=== PATIENT | male | born 1930 | race Caucasian/White ===

== ENCOUNTER 2017-05-27 07:33 | Day surgery (SDC) | payer MEDICARE, OTHER ==
[~2017-05-27] VITALS: Ht 177.8 cm; Wt 78.8 kg
[~2017-05-27 07:33] MED LIST: ASPI-650 PO; GLUCOSAMINE PO; MULT-516 PO
[2017-05-27] MEDS ORDERED: SODIUM CHLORIDE 0.9% 1,000 ML IV SCH (07:52)
[2017-05-27 08:16] VITALS: BP 161/68
[2017-05-27] MEDS ORDERED: ATORVASTATIN PO (08:20)
[2017-05-27] MEDS ORDERED: VISIPAQUE 270 MG/ML, 150ML BOTTLE ONE (10:00)
[2017-05-27] MEDS ORDERED: FENTANYL PF 100 MCG/2ML ONE (10:17)
[2017-05-27] MEDS ORDERED: MIDAZOLAM 1 MG/ML, 5ML ONE (10:17)
[2017-05-27] MEDS ORDERED: HEPARIN 5,000 UNITS/ML, 1ML ONE (10:18)
[2017-05-27] MEDS ORDERED: FLUMAZENIL 0.1 MG/1 ML, 5ML ONE (10:18)
[2017-05-27] MEDS ORDERED: NALOXONE 1 MG/ML, 2ML ONE (10:18)
[2017-05-27] MEDS ORDERED: PROTAMINE SULFATE 10 MG/ML, 25ML ONE (10:19)
[2017-05-27] MEDS ORDERED: LIDOCAINE 2%, 20ML ONE (10:28)
== END 2017-05-27 13:00 ==
LOC: OUT 07:33
PROVIDERS: ATTEND Surgery
DX: I70.211 Atherosclerosis of native arteries of extremities with intermittent claudication, right leg (principal); I10 Essential (primary) hypertension; J44.9 Chronic obstructive pulmonary disease, unspecified; E11.9 Type 2 diabetes mellitus without complications; E78.5 Hyperlipidemia, unspecified; Z98.890 Other specified postprocedural states; Z88.0 Allergy status to penicillin
CPT/HCPCS: 36200; 75630; 75716; 99156; 99157; C1769; C1894; J1644; J2250; J3010; J3490; J7030; Q9966; 75625; J2720; J2310

== ENCOUNTER 2017-06-05 11:58 | Inpatient (IN) | payer MEDICARE, OTHER ==
[~2017-06-05] VITALS: Ht 177.8 cm; Wt 85.0 kg
[~2017-06-05 11:58] MED LIST changes: +ATORVASTATIN PO; +CEFAZOLIN 1,000 MG ONE; +DEXAMETHASONE 4 MG/ML, 1ML ONE; +EPHEDRINE 50 MG/ML, 1ML ONE; +ONDANSETRON 2MG/ML, 2ML ONE; +PHENYLEPHRINE 10 MG/ML ONE; +PROPOFOL 10 MG/ML, 20ML ONE; +ROCURONIUM 10 MG/ML,10ML ONE; +SUCCINYLCHOLINE 20 MG/ML, 10ML ONE
[2017-06-05] MEDS ORDERED: LACTATED RINGERS 1,000 ML IV SCH (12:37)
[2017-06-05 12:46] VITALS: BP 167/75
[2017-06-05] MEDS ORDERED: LIDOCAINE-MPF 1%, 2ML INFIL ONE (13:00)
[2017-06-05] MEDS ORDERED: THROMBIN 20,000 UNIT VIAL TP ONE ×2 (14:03→17:40)
[2017-06-05] MEDS ORDERED: PROTAMINE SULFATE 10 MG/ML, 5ML ONE (14:03)
[2017-06-05] MEDS ORDERED: EPINEPHRINE 1 MG/ML, 1ML ONE (14:03)
[2017-06-05] MEDS ORDERED: BUPIVACAINE/PF 0.25% ONE (14:03)
[2017-06-05] MEDS ORDERED: HEPARIN 1,000 UNITS/ML, 10ML ONE (14:03)
[2017-06-05] MEDS ORDERED: FENTANYL PF 250 MCG/5ML ONE (14:25)
[2017-06-05] MEDS ORDERED: HEPARIN 1,000 UNITS/ML, 10ML IV ONE (17:17)
[2017-06-05] MEDS ORDERED: BUPIVACAINE/PF-EPI 0.25% 1:200K IM ONE (17:17)
[2017-06-05] MEDS ORDERED: PROMETHAZINE 25 MG/ML, 1ML IV PRN (19:00)
[2017-06-05] MEDS ORDERED: OXYcodone 5 MG/5 ML ORAL.SOL UDC PO PRN (19:00)
[2017-06-05] MEDS ORDERED: LABETALOL 5MG/ML, 20ML IV PRN ×2 (19:00→20:30)
[2017-06-05] MEDS ORDERED: morphine SULFATE 10 MG/ML, 1ML IV PRN ×3 (19:00→21:00)
[2017-06-05] MEDS ORDERED: FENTANYL PF 100 MCG/2ML IV PRN (19:00)
[2017-06-05] MEDS ORDERED: ASPIRIN 81 MG TABLET EC PO ONE (19:30)
[2017-06-05] MEDS ORDERED: LABETALOL 5MG/ML, 20ML ONE (19:34)
[2017-06-05] MEDS ORDERED: ONDANSETRON 2MG/ML, 2ML IV PRN (20:30)
[2017-06-05] MEDS ORDERED: hydrALAzine 20 MG/ML, 1ML IV PRN (20:30)
[2017-06-05] MEDS ORDERED: ACETAMINOPHEN 325 MG TABLET PO PRN ×2 (20:30)
[2017-06-05] MEDS ORDERED: ALBUTEROL/IPRATROPIUM 2.5MG/0.5MG, 3 ML NPPB PRN (21:00)
[2017-06-05] MEDS: CEFAZOLIN PMX 2GM/50ML 50 ML IVPB SCH (21:07)
[2017-06-05] MEDS: SODIUM CHLORIDE FLUSH 10ML SYR IVF SCH (21:08)
[2017-06-05] MEDS: ATORVASTATIN 40 MG TABLET PO SCH (21:45)
[2017-06-05] MEDS: INSULIN REGULAR, HUMAN 100 UNIT/ML 3ML VIAL LOW DOSE SS SQ-INSULIN SCH (21:45)
[2017-06-05] MEDS: HYDROcodone/APAP 5/325 TABLET PO PRN (23:42)
[2017-06-06 00:09] VITALS: BP 127/71
[2017-06-06] MEDS: LACTATED RINGERS 1,000 ML IV SCH ×3 (00:09→23:32)
[2017-06-06] MEDS: CEFAZOLIN PMX 2GM/50ML 50 ML IVPB SCH ×2 (00:10→08:09)
[2017-06-06] MEDS: HYDROcodone/APAP 5/325 TABLET PO PRN ×3 (03:44→21:29)
[2017-06-06 04:15] VITALS: BP 112/57
[2017-06-06 05:10] LABS: BASOPHILS # (AUTO) 0.06 x10^3/uL (0-0.1); BASOPHILS % (AUTO) 0 % (0-1); EOSINOPHILS # (AUTO) 0.02 x10^3/uL (0-0.4); EOSINOPHILS % (AUTO) 0 % (1-7); LYMPHOCYTES # (AUTO) 0.88 x10^3/uL (1-3.4); LYMPHOCYTES % (AUTO) 6 % (22-44); MD NO; MEAN CORPUSCULAR HEMOGLOBIN 31.8 pg (27.5-34.5); MEAN CORPUSCULAR HGB CONC 33.9 g/dL (33.2-36.2); MEAN CORPUSCULAR VOLUME 93.6 fL (81-97); MEAN PLATELET VOLUME 9.2 fL (7.4-10.4); MONOCYTES # (AUTO) 0.18 x10^3/uL (0.2-0.8); MONOCYTES % (AUTO) 1 % (2-9); NEUTROPHILS # (AUTO) 12.89 x10^3/uL (1.8-6.8); NEUTROPHILS % (AUTO) 92 % (42-75); PLATELET COUNT 212 x10^3/uL (130-400); RED BLOOD COUNT 3.68 x10^6/uL (4.38-5.82); RED CELL DISTRIBUTION WIDTH 14.5 % (9.4-14.8)
[2017-06-06 05:17] LABS: ALBUMIN 2.8 g/dL (3.4-5.0); ANION GAP 8 mmol/L (5-15); CHLORIDE 108 mmol/L (98-107); CREATININE 1.17 mg/dL (0.7-1.3)
[2017-06-06] MEDS: ASPIRIN 81 MG TABLET EC PO SCH (06:36)
[2017-06-06] MEDS: METOPROLOL TARTRATE 25 MG TABLET PO SCH ×2 (06:37→17:21)
[2017-06-06 07:42] VITALS: BP 113/53
[2017-06-06] MEDS: ENOXAPARIN 40 MG/0.4 ML SQ SCH (08:10)
[2017-06-06] MEDS: INSULIN REGULAR, HUMAN 100 UNIT/ML 3ML VIAL LOW DOSE SS SQ-INSULIN SCH ×4 (08:10→20:26)
[2017-06-06] MEDS: SODIUM CHLORIDE FLUSH 10ML SYR IVF SCH ×2 (08:11→20:27)
[2017-06-06] MEDS ORDERED: FLUTICASONE/VILANTEROL 100-25MCG/INH INH SCH (09:00)
[2017-06-06 12:18] VITALS: BP 116/65
[2017-06-06] MEDS ORDERED: CEFAZOLIN 2,000 MG in DEXTROSE 5% 50 ML IVPB SCH (16:30)
[2017-06-06 18:56] VITALS: BP 146/69
[2017-06-06] MEDS: ATORVASTATIN 40 MG TABLET PO SCH (20:23)
[2017-06-06] MEDS ORDERED: TAMSULOSIN 0.4 MG CAP.ER.24H PO SCH (21:00)
[2017-06-07 02:00] VITALS: BP 117/62
[2017-06-07] MEDS: HYDROcodone/APAP 5/325 TABLET PO PRN (04:40)
[2017-06-07] MEDS: ASPIRIN 81 MG TABLET EC PO SCH (06:38)
[2017-06-07] MEDS: ENOXAPARIN 40 MG/0.4 ML SQ SCH (06:38)
[2017-06-07] MEDS: METOPROLOL TARTRATE 25 MG TABLET PO SCH (06:38)
[2017-06-07] MEDS: INSULIN REGULAR, HUMAN 100 UNIT/ML 3ML VIAL LOW DOSE SS SQ-INSULIN SCH (06:42)
[2017-06-07 08:26] VITALS: BP 149/67
[2017-06-07] MEDS ORDERED: ASPI-496 PO (08:35)
[2017-06-07] MEDS ORDERED: HYDR-3237 PO (08:38)
[2017-06-07] MEDS: SODIUM CHLORIDE FLUSH 10ML SYR IVF SCH (09:00)
[2017-06-07] MEDS ORDERED: CLOP75TA52 PO (10:43)
[2017-06-07] MEDS ORDERED: TAMS-11 PO (10:43)
[2017-06-07] MEDS ORDERED: TAMSULOSIN 0.4 MG CAP.ER.24H PO SCH (21:00)
== END 2017-06-07 11:00 | disposition home or self-care (01) | DRG 253 ==
LOC: ORIP 11:58 → 4NOR 19:58 → DCLOUNGE 06-07 10:37
PROVIDERS: ADMIT Surgery; ATTEND Surgery
PROC: 041L0JH Bypass Left Femoral Artery to Right Femoral Artery with Synthetic Substitute, Open Approach (ICD-10-PCS; principal; 2017-06-05 15:00)
DX: I70.201 Unspecified atherosclerosis of native arteries of extremities, right leg (principal); E44.0 Moderate protein-calorie malnutrition; E11.51 Type 2 diabetes mellitus with diabetic peripheral angiopathy without gangrene; J44.9 Chronic obstructive pulmonary disease, unspecified; E78.5 Hyperlipidemia, unspecified; K42.9 Umbilical hernia without obstruction or gangrene; M54.5 Low back pain; G89.29 Other chronic pain; I10 Essential (primary) hypertension; Z87.891 Personal history of nicotine dependence; Z68.26 Body mass index [BMI] 26.0-26.9, adult; Z88.0 Allergy status to penicillin
CPT/HCPCS: 36415; 80048; 82040; 82962; 85025; 86850; 86900; 88305; 93005; J0171; J0690; J1100; J1644; J1650; J1815; J2405; J2704; J2720; J3010; J3490; C1768; J0330; J2370; J7120

== ENCOUNTER → 2017-11-29 | Outpatient (CLI) | payer MEDICARE, OTHER ==
[~2017-11-29] MED LIST changes: +ASPI-496 PO; -CEFAZOLIN 1,000 MG ONE; +CLOP75TA52 PO; -DEXAMETHASONE 4 MG/ML, 1ML ONE; -EPHEDRINE 50 MG/ML, 1ML ONE; +HYDR-3237 PO; -ONDANSETRON 2MG/ML, 2ML ONE; -PHENYLEPHRINE 10 MG/ML ONE; -PROPOFOL 10 MG/ML, 20ML ONE; -ROCURONIUM 10 MG/ML,10ML ONE; -SUCCINYLCHOLINE 20 MG/ML, 10ML ONE; +TAMS-11 PO
== END | disposition home or self-care (01) ==
LOC: CVU 08:14
PROVIDERS: ATTEND Surgery
DX: I77.1 Stricture of artery (principal); Z85.828 Personal history of other malignant neoplasm of skin; Z87.891 Personal history of nicotine dependence; Z88.1 Allergy status to other antibiotic agents
CPT/HCPCS: 93922; 93925

== ENCOUNTER 2019-03-02 07:05 | Day surgery (SDC) | payer MEDICARE, OTHER ==
[~2019-03-02] VITALS: Ht 180.3 cm; Wt 81.9 kg
[2019-03-02 07:52] VITALS: BP 152/74
[2019-03-02] MEDS ORDERED: SODIUM CHLORIDE 0.9% 1,000 ML IV SCH (08:00)
[2019-03-02] MEDS ORDERED: IRON1TAB60 PO (08:19)
[2019-03-02] MEDS ORDERED: TAMS-11 PO (08:19)
[2019-03-02] MEDS ORDERED: SENN1TAB67 PO (08:19)
[2019-03-02] MEDS ORDERED: CLOP75TA52 PO (08:19)
[2019-03-02] MEDS ORDERED: ACET325T14 PO (08:26)
[2019-03-02 08:28] LABS: BASOPHILS # (AUTO) 0.07 x10^3/uL (0-0.1); BASOPHILS % (AUTO) 1 % (0-1); EOSINOPHILS # (AUTO) 0.41 x10^3/uL (0-0.4); EOSINOPHILS % (AUTO) 4 % (1-7); LYMPHOCYTES # (AUTO) 1.61 x10^3/uL (1-3.4); LYMPHOCYTES % (AUTO) 15 % (22-44); MD NO; MEAN CORPUSCULAR HEMOGLOBIN 31.5 pg (27.5-34.5); MEAN CORPUSCULAR HGB CONC 32.8 g/dL (33.2-36.2); MEAN CORPUSCULAR VOLUME 96.2 fL (81-97); MEAN PLATELET VOLUME 8.2 fL (7.4-10.4); MONOCYTES # (AUTO) 0.69 x10^3/uL (0.2-0.8); MONOCYTES % (AUTO) 7 % (2-9); NEUTROPHILS # (AUTO) 7.66 x10^3/uL (1.8-6.8); NEUTROPHILS % (AUTO) 73 % (42-75); PLATELET COUNT 289 x10^3/uL (130-400); RED BLOOD COUNT 4.11 x10^6/uL (4.38-5.82); RED CELL DISTRIBUTION WIDTH 14.2 % (9.4-14.8)
[2019-03-02] MEDS ORDERED: CEFAZOLIN 2,000 MG in SODIUM CHLORIDE 0.9% 50 ML IV ONE (08:30)
[2019-03-02 08:44] LABS: ANION GAP 5 mmol/L (5-15); CALCIUM 8.7 mg/dL (8.5-10.1); CHLORIDE 110 mmol/L (98-107); CREATININE 1.32 mg/dL (0.7-1.3)
[2019-03-02] MEDS ORDERED: ACETAMINOPHEN 500 MG TABLET ONE (09:12)
[2019-03-02] MEDS ORDERED: ACETAMINOPHEN 500 MG TABLET PO PRN (09:30)
[2019-03-02] MEDS ORDERED: FENTANYL PF 100 MCG/2ML ONE (09:50)
[2019-03-02] MEDS ORDERED: MIDAZOLAM 1 MG/ML, 5ML ONE (09:50)
[2019-03-02] MEDS ORDERED: PROTAMINE SULFATE 10 MG/ML, 25ML ONE (09:51)
[2019-03-02] MEDS ORDERED: FLUMAZENIL 0.1 MG/1 ML, 5ML ONE (09:51)
[2019-03-02] MEDS ORDERED: NALOXONE 1 MG/ML, 2ML ONE (09:51)
[2019-03-02] MEDS ORDERED: HEPARIN 1,000 UNITS/ML, 10ML ONE (09:51)
[2019-03-02] MEDS ORDERED: LIDOCAINE 1%, 10ML ONE (10:04)
[2019-03-02] MEDS ORDERED: hydrALAzine 20 MG/ML, 1ML ONE (10:30)
[2019-03-02] MEDS ORDERED: VISIPAQUE 270 MG/ML, 50ML BOTTLE ONE (11:00)
[2019-03-02] MEDS ORDERED: CLOPIDOGREL 75 MG TABLET ONE (11:19)
[2019-03-02] MEDS ORDERED: HYDROcodone/APAP 5/325 TABLET ONE (11:20)
[2019-03-02] MEDS ORDERED: HYDROcodone/APAP 5/325 TABLET PO ONE (11:30)
[2019-03-02] MEDS ORDERED: CLOPIDOGREL 75 MG TABLET PO ONE (11:30)
[2019-03-02] MEDS ORDERED: morphine SULFATE 10 MG/ML, 1ML ONE (11:39)
== END 2019-03-02 14:10 | disposition home or self-care (01) ==
LOC: SDC 07:05
PROVIDERS: ATTEND Surgery
DX: I70.233 Atherosclerosis of native arteries of right leg with ulceration of ankle (principal); L97.319 Non-pressure chronic ulcer of right ankle with unspecified severity; I10 Essential (primary) hypertension; J44.9 Chronic obstructive pulmonary disease, unspecified; E11.9 Type 2 diabetes mellitus without complications; E78.5 Hyperlipidemia, unspecified; G89.29 Other chronic pain; M54.5 Low back pain; F17.210 Nicotine dependence, cigarettes, uncomplicated; Z79.82 Long term (current) use of aspirin; Z79.02 Long term (current) use of antithrombotics/antiplatelets; Z79.899 Other long term (current) drug therapy; Z88.0 Allergy status to penicillin; Z90.49 Acquired absence of other specified parts of digestive tract; Z98.890 Other specified postprocedural states; Z82.49 Family history of ischemic heart disease and other diseases of the circulatory system
CPT/HCPCS: 36415; 37224; 75710; 76937; 80048; 85025; 99156; 99157; C1725; C1751; C1769; C1894; J0360; J0690; J1644; J2250; J2720; J3010; J7030; Q9966; J2310